=== PATIENT | male | born 1975 | race Caucasian/White ===

== ENCOUNTER 2016-10-25 09:29 | Emergency (ER) | payer OTHER ==
[2016-10-25 09:48] VITALS: BP 116/83; PULSE 56; RESP 14; TEMP 97.9; O2SAT 98
--- NOTE | 2016-10-25 10:02 | UCPHY ---
H & P Time Seen by Provider: 10/25/16 09:42 Patient Type: New HPI/ROS: This patient complains of the head injury. This occurred yesterday at 9:30 a.m. morning at his residence in a shed that was newly installed the backyard when he bumped his head against the doorjamb. The injury was to the right parietal region he reported immediate pain but he denies being dazed, seeing stars or having any other loss or change of consciousness. He does report ongoing 6/10 dull headache since that time. He tried some ibuprofen yesterday with minimal improvement but has not taken anything today. He feels that he is more fatigued than usual this morning and having mild difficulty concentrating while sending emails. He also reports feeling more easily frustrated than usual. ROS: He felt well prior to the head injury. HEENT: He reports a subtle feeling of difficulty focusing his vision but can' t specify the details of this. He denies any other HEENT complaints. He has no midline neck back or other musculoskeletal complaints. Neuro: No numbness tingling or focal weakness. Pulmonary: No complaints cardiovascular: No complaints GI: He has mild nausea yesterday that has since resolved. He ate breakfast without difficulty this morning. 10 point ROS is otherwise negative. Past Medical/Surgical History: Otherwise healthy except for 1 concussion a few years ago Smoking Status: Never smoked Physical Exam: Physical exam: Vital signs are normal General: Patient is in no acute distress. HEENT: Is no external evidence of trauma on exam except for right parietal tenderness. No hematomas. No lacerations. Nose atraumatic. Ears: Clear bilaterally with no hemotympanum. Oropharynx: No dental trauma or malocclusion. No intraoral lacerations. Eyes: Pupils are equal and reactive to light. Extraocular motions are intact. Optic fundi: Clear with no papilledema or hemorrhage. Neck: Trachea is midline with no stridor. The patient has no midline neck tenderness and retains a full range of motion without increase in pain. Lungs: Clear to auscultation bilaterally Cardiac: Regular rate and rhythm no murmur gallop or rub. Back: Nontender Extremities: Atraumatic Neuro: GCS of 15. Cranial nerves II through XII intact. 3 out of 3 five- minute memory is intact. Cerebellar exam is normal as judged by symmetric rapid hand movements bilaterally. No pronator drift. No sensory or motor deficits are appreciated. Initial differential diagnosis: Minor head injury, mild concussion, doubt subdural hematoma or other intracranial pathology. Constitutional: Initial Vital Signs Temperature (C) 36.6 C 10/25/16 09:43 Heart Rate 56 L 10/25/16 09:43 Respiratory Rate 14 10/25/16 09:43 Blood Pressure 116/83 H 10/25/16 09:43 O2 Sat (%) 98 10/25/16 09:43 O2 Delivery Mode Room Air Allergies/Adverse Reactions: No Known Allergies Allergy (Unverified 10/25/16 09:43) Home Medications: Medication Instructions Recorded NK [No Known Home Meds] 10/25/16 MDM/Departure - MDM ED Course/Re-evaluation: Patient with no change in consciousness from his head injury and no concerning findings on exam. I counseled him regarding minor head injury. - Depart Disposition: Home, Routine, Self-Care Clinical Impression: Minor head injury without loss of consciousness Qualifiers: Encounter type: initial encounter Qualified Code(s): S09.90XA - Unspecified injury of head, initial encounter Condition: Good Instructions: Head Injury (ED) Additional Instructions: Diagnosis: Minor head injury Plan: Tylenol for headache. Limit activity for the next day or to Drink plenty fluids Avoid activities for the next week or so petit risk for repeat head injury. For the emergency department if he develops unbearable headache, vomiting, confusion or other concerns Stand Alone Forms: Work Excuse Referrals: NONE *PRIMARY CARE P,. [Primary Care Provider] - As per Instructions - PQRS PQRS Measurement: NA
== END 2016-10-25 10:15 | disposition home or self-care (01) ==
LOC: CED 09:29
DX: S09.90XA Unspecified injury of head, initial encounter (principal); W22.09XA Striking against other stationary object, initial encounter; Y92.018 Other place in single-family (private) house as the place of occurrence of the external cause; Y99.8 Other external cause status
CPT/HCPCS: G0463-PO

== ENCOUNTER → 2017-08-04 | Outpatient (CLI) | payer OTHER | LOC: BMCIMAGING 13:33 | PROVIDERS: ATTEND Family Medicine | DX: J98.4 Other disorders of lung (principal) ==